=== PATIENT | female | born 1995 | race Caucasian/White ===

== ENCOUNTER 2018-03-22 20:10 | Emergency (ER) | payer BC ==
[~2018-03-22] VITALS: Ht 162.6 cm; Wt 117.9 kg
[2018-03-22] MEDS ORDERED: IBUPROFEN 800800 M1 PO (20:22)
[2018-03-22] MEDS ORDERED: ALLEGRA ALLERG180 MG PO (20:22)
[2018-03-22] MEDS ORDERED: PREDNISONE50 MG PO (21:15)
[2018-03-22 21:25] VITALS: BP 150/83
== END 2018-03-22 21:25 | disposition home or self-care (01) ==
LOC: M.ERS 20:10
DX: T78.1XXA Other adverse food reactions, not elsewhere classified, initial encounter (principal); L50.9 Urticaria, unspecified; X58.XXXA Exposure to other specified factors, initial encounter; Z88.1 Allergy status to other antibiotic agents

== ENCOUNTER 2018-11-16 05:24 | Emergency (ER) | payer OTHER ==
[~2018-11-16] VITALS: Ht 162.6 cm; Wt 117.9 kg
[~2018-11-16 05:24] MED LIST: ALLEGRA ALLERG180 MG PO; IBUPROFEN 800800 M1 PO; PREDNISONE50 MG PO
[2018-11-16] MEDS ORDERED: PREDNISONE50 MG PO (06:28)
[2018-11-16 06:54] VITALS: BP 122/78
== END 2018-11-16 06:55 | disposition home or self-care (01) ==
LOC: M.ERS 05:24
DX: L50.9 Urticaria, unspecified (principal); T78.40XA Allergy, unspecified, initial encounter; Z98.890 Other specified postprocedural states; Z88.1 Allergy status to other antibiotic agents; X58.XXXA Exposure to other specified factors, initial encounter